=== PATIENT | female | born 1960 | race African-American/Black ===

== ENCOUNTER 2021-10-31 12:11 | Outpatient (CLI) | payer OTHER, BC, SELFPAY ==
--- NOTE | ~2021-10-31 | XR_ITS ---
EXAMINATION: XR shoulder RT min 2V INDICATION: Chronic right shoulder pain TECHNIQUE: Four views of the left shoulder are submitted. COMPARISON: None FINDINGS: Normal alignment. No fracture. There is unchanged severe osteoarthritis of the acromioclavi cular joint and mild osteoarthritis of the glenohumeral joint. Soft tissues are unremarkable. IMPRESSION: 1. Unchanged severe osteoarthritis of the acromioclavicular joint. Reviewed, dictated and finalized at location B.
== END 2021-10-31 12:12 ==
PROVIDERS: PCP Nurse Practitioner Family; Visit Provider Nurse Practitioner Family
DX: M19.011 Primary osteoarthritis, right shoulder (principal)
CPT/HCPCS: 73030

== ENCOUNTER → 2022-02-01 15:51 | Outpatient (CLI) | payer BC, SELFPAY ==
--- NOTE | ~2022-02-01 | MR_ITS ---
EXAMINATION: MR cervical spine wo con DATE: 02/01/2022 16:36 INDICATION: Right arm weakness TECHNIQUE: Magnetic resonance imaging (MRI) of the cervical spine was performed without intravenous c ontrast. Sequences included sagittal T2-weighted FSE, sagittal T2-weighted FS FSE, sagittal T1-weight ed FSE, axial MERGE and axial T2-weighted FSE. COMPARISON: Lumbar spine CT dated 06/05/2018 FINDINGS: Straightening of the normal cervical lordosis. Vertebral body heights are normal. Mild disc height l oss at C2-C3 and C4-C5 through T3-T4 with prominent anterior endplate osteophytes at C4-C5 through C6 -C7. Mildly heterogeneous marrow signal intensity without concerning T1 hypointense lesions. Cord sig nal intensity is normal. 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 Enlarged ri ght thyroid lobe and atrophic or absent left thyroid lobe partially obscured by a saturation band. Ce rvical soft tissues are otherwise unremarkable. The following disc levels are specifically discussed: C2-C3: The disc does not extend beyond the endplate margin. There is no uncovertebral joint osteoarth ritis. There is mild bilateral facet joint osteoarthritis. There is no neural foraminal stenosis. The re is no central canal stenosis. C3-C4: Mild disc bulge with annular fissure. There is mild left uncovertebral joint osteoarthritis. T here is mild bilateral facet joint osteoarthritis. There is no neural foraminal stenosis. There is no central canal stenosis. C4-C5: Disc is minimally bulging. There is mild bilateral uncovertebral joint osteoarthritis. There i s mild bilateral facet joint osteoarthritis. There is no neural foraminal stenosis. There is no centr al canal stenosis. C5-C6: Disc is minimally bulging. There is mild bilateral uncovertebral joint osteoarthritis. There i s mild bilateral facet joint osteoarthritis. There is no neural foraminal stenosis. There is no centr al canal stenosis. C6-C7: Annular fissure and small central disc protrusion. There is mild left uncovertebral joint oste oarthritis. There is mild bilateral facet joint osteoarthritis. There is no neural foraminal stenosis . There is mild central canal stenosis. C7-T1: Annular fissure with mild disc bulge. There is mild bilateral uncovertebral joint osteoarthrit is. There is mild bilateral bilateral facet joint osteoarthritis. There is no neural foraminal stenos is. There is mild central canal stenosis. IMPRESSION: 1. Straightening of the normal cervical lordosis and mild spondylosis Reviewed, dictated and finalized at location A. [employer]
== END ==
PROVIDERS: PCP Nurse Practitioner Family; Visit Provider Orthopaedic Surgery
DX: M47.812 Spondylosis without myelopathy or radiculopathy, cervical region (principal); R53.1 Weakness
CPT/HCPCS: 72141

== ENCOUNTER 2022-03-08 08:46 | Outpatient (CLI) | payer BC, SELFPAY ==
--- NOTE | ~2022-03-08 | MR_ITS ---
MRI of the brain Clinical History: TIA Technique: Axial and sagittal T1-weighted images were acquired. These were followed by axial T2-weigh alejandra, diffusion weighted, gradient, and FLAIR images. Findings: There is no acute infarct, intracranial hemorrhage, or mass lesion. There is an area of chr onic encephalomalacia in the left frontal lobe. There is diffuse hyperintense signal abnormality on F LAIR images throughout the ventricular white matter and in the levar. Ventricles and subarachnoid spaces are unremarkable. Orbits are unremarkable. Paranasal sinuses and m astoid air cells are clear. Major intracranial flow voids are preserved. Sagittal midline structures are intact. IMPRESSION: No acute abnormality seen. 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 Correlate for old infarct. Diffuse chronic white matter disease. Finding suggests severe chronic microvascular ischemic change. Correlate for other diffuse, chronic white matter disease. Reviewed, dictated and finalized at [facility]. [place] [employer] IMPRESSION: No acute abnormality seen. 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 Correlate for old infarct. Diffuse chronic white matter disease. Finding suggests severe chronic microvasc ular ischemic change. Correlate for other diffuse, chronic white matter disease .
== END 2022-03-08 08:47 ==
PROVIDERS: PCP Nurse Practitioner Family; Visit Provider Nurse Practitioner Family
DX: G45.9 Transient cerebral ischemic attack, unspecified (principal); G93.89 Other specified disorders of brain
CPT/HCPCS: 70551

== ENCOUNTER → 2022-10-09 08:59 | Outpatient (CLI) | payer BC, SELFPAY ==
--- NOTE | ~2022-10-09 | MR_ITS ---
EXAMINATION: MR shoulder RT wo con DATE: 10/09/2022 10:04 INDICATION: Right shoulder pain TECHNIQUE: Magnetic resonance imaging (MRI) of the right shoulder was performed without intravenous c ontrast. Sequences included axial PD-weighted FS FSE, coronal oblique PD-weighted FS FSE, coronal obl ique T2-weighted FS FSE, sagittal PD-weighted FS FSE, and sagittal T1-weighted SE. COMPARISON: Right shoulder radiographs dated 10/31/2021 FINDINGS: Coracoacromial arch: The acromion undersurface is curved in morphology (type II). The coracoacromial ligament is normal. M oderate acromioclavicular osteoarthritis. Rotator cuff: Moderate supraspinatus and mild infraspinatus tendinopathy. There is a small mild articular sided tea r at the superior facet footplate of the distal supraspinatus tendon measuring 2-3 mm AP and 6 mm med ial to lateral involving no greater than one third of the tendon thickness. The teres minor tendon is normal. Mild subscapularis tendinopathy without discrete tear. Mild fatty atrophy of the subscapular is muscle belly. Biceps tendon, glenoid labrum and glenohumeral cartilage: Mild tendinopathy without tear of the intra-articular portion of the long head biceps tendon. There i s a superior, anterior to posterior tear of the glenoid labrum (SLAP tear) beginning at the 12:30 pos ition of the superior glenoid labrum and extending posteriorly to the 10:30 position of the posterosu perior glenoid labrum. Mild right glenohumeral osteoarthritis with focal region of deep chondral ulce ration at the apex of the humeral head. Fluid: Small glenohumeral joint effusion with mild synovitis at the axillary recess. No loose osteochondral bodies. Small amount of fluid in the subacromial/subdeltoid bursa consistent with mild bursitis. Bones: Bone alignment is normal. No fracture or pathologic marrow replacing process. There is cystic change and surrounding focal marrow edema at the cephalad aspect of the intertubercular groove and anterior margin of the superior facet of the greater tuberosity. IMPRESSION: 1. Mild to moderate rotator cuff tendinopathy. Prominent at the supraspinatus tendon where there is a small mild articular sided tear. 2. SLAP tear of the superior to posterosuperior glenoid labrum. 3. Mild right glenohumeral and moderate acromioclavicular osteoarthritis. 4. Small right glenohumeral joint effusion and mild subacromial/subdeltoid bursitis. Reviewed, dictated and finalized at location B. IMPRESSION: 1. Mild to moderate rotator cuff tendinopathy. Prominent at the supraspinatus t endon where there is a small mild articular sided tear. 2. SLAP tear of the superior to posterosuperior glenoid labrum. 3. Mild right glenohumeral and moderate acromioclavicular osteoarthritis. 4. Small right glenohumeral joint effusion and mild subacromial/subdeltoid burs itis.
== END ==
PROVIDERS: PCP Nurse Practitioner Family; Visit Provider Orthopaedic Surgery
DX: S43.431A Superior glenoid labrum lesion of right shoulder, initial encounter (principal); M19.011 Primary osteoarthritis, right shoulder; M25.411 Effusion, right shoulder; X58.XXXA Exposure to other specified factors, initial encounter
CPT/HCPCS: 73221

== ENCOUNTER 2022-11-08 07:49 | Outpatient (CLI) | payer BC, SELFPAY ==
--- NOTE | 2022-11-08 11:00 | NEURO_ITS ---
Impression: # Complains of numbness of hands and right shoulder pain. 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 # Left ulnar neuropathy across the elbow. # No Carpal Tunnel Syndrome. # Normal Needle/EMG exam including proximal muscles of right upper extremity. # Clinical correlation recommended. Nerve Conduction Studies Anti Sensory Summary Table Stim Site NR Peak (ms) P-T Amp (?V) Site1 Site2 Delta-P (ms) Dist (cm) Dano (m/s) Left Median Anti Sensory (2-3nd Digit) Wrist 3.0 34.9 Wrist 2-3nd Digit 3.0 14.0 47 Wrist 3.1 54.8 Wrist 2-3nd Digit 3.0 14.0 47 Right Median Anti Sensory (2-3nd Digit) Wrist 2.7 43.5 Wrist 2-3nd Digit 2.7 14.0 52 Wrist 2.8 32.3 Wrist 2-3nd Digit 2.7 14.0 52 Left Radial Anti Sensory (Base 1st Digit) Wrist 1.8 24.6 Wrist Base 1st Digit 1.8 0.0 Right Radial Anti Sensory (Base 1st Digit) Wrist 2.0 28.6 Wrist Base 1st Digit 2.0 0.0 Left Ulnar Anti Sensory (5th Digit) Wrist 2.7 46.3 Wrist 5th Digit 2.7 14.0 52 Right Ulnar Anti Sensory (5th Digit) Wrist 2.7 37.4 Wrist 5th Digit 2.7 14.0 52 Motor Summary Table Stim Site NR Onset (ms) O-P Amp (mV) Site1 Site2 Delta-0 (ms) Dist (cm) Dano (m/s) Left Median Motor (Abd Poll Brev) Wrist 3.1 5.7 Elbow Wrist 4.8 28.0 58 Elbow 7.9 3.2 Right Median Motor (Abd Poll Brev) Wrist 2.6 4.9 Elbow Wrist 4.3 25.0 58 Elbow 6.9 4.5 Left Ulnar Motor (Abd Dig Minimi) Wrist 2.3 4.5 A Elbow Wrist 6.7 30.0 45 A Elbow 9.0 2.3 B Elbow Wrist 3.8 22.0 58 B Elbow 6.1 4.4 Right Ulnar Motor (Abd Dig Minimi) Wrist 2.7 3.6 A Elbow Wrist 4.7 25.0 53 A Elbow 7.4 1.4 B Elbow Wrist 3.2 19.0 59 B Elbow 5.9 2.7 F Wave Studies NR F-Lat (ms) L-R F-Lat (ms) Left Median (Mrkrs) (Abd Poll Brev) 25.39 0.69 Right Median (Mrkrs) (Abd Poll Brev) 24.70 0.69 Left Ulnar (Mrkrs) (Abd Dig Min) 26.22 1.29 Right Ulnar (Mrkrs) (Abd Dig Min) 24.92 1.29 EMG Side Muscle Nerve Root Ins Act Fibs Amp Dur Recrt Comment Right 1stDorInt Ulnar C8-T1 Nml Nml Nml Nml Nml Right Ext Indicis Radial (Post Int) C7-8 Nml Nml Nml Nml Nml Right Ext Digitorum Radial (Post Int) C7-8 Nml Nml Nml Nml Nml Right BrachioRad Radial C5-6 Nml Nml Nml Nml Nml Right PronatorTeres Median C6-7 Nml Nml Nml Nml Nml Right Abd Poll Brev Median C8-T1 Nml Nml Nml Nml Nml Left 1stDorInt Ulnar C8-T1 Nml Nml Nml Nml Nml Left Ext Indicis Radial (Post Int) C7-8 Nml Nml Nml Nml Nml Left Ext Digitorum Radial (Post Int) C7-8 Nml Nml Nml Nml Nml Left BrachioRad Radial C5-6 Nml Nml Nml Nml Nml Left PronatorTeres Median C6-7 Nml Nml Nml Nml Nml Left Abd Poll Brev Median C8-T1 Nml Nml Nml Nml Nml Right Biceps Musculocut C5-6 Nml Nml Nml Nml Nml Right Triceps Radial C6-7-8 Nml Nml Nml Nml Nml Right Deltoid Axillary C5-6 Nml Nml Nml Nml Nml Left Biceps Musculocut C5-6 Nml Nml Nml Nml Nml Left Triceps Radial C6-7-8 Nml Nml Nml Nml Nml Left Deltoid Axillary C5-6 Nml Nml Nml Nml Nml MTDD
== END 2022-11-08 07:50 | disposition home or self-care (01) ==
PROVIDERS: PCP Nurse Practitioner Family; Visit Provider Orthopaedic Surgery
DX: R20.2 Paresthesia of skin (principal); G56.22 Lesion of ulnar nerve, left upper limb
CPT/HCPCS: 95886; 95911

== ENCOUNTER 2024-07-18 08:53 | Outpatient (CLI) | payer OTHER, SELFPAY ==
--- NOTE | ~2024-07-18 | XR_ITS ---
AP view of the pelvis and AP and lateral views of the right hip Clinical history: Pain Findings: No acute fracture or dislocation is seen. Osseous alignment is anatomic. Bilateral hip and SI joint spaces are preserved. Soft tissues are unremarkable. Impression: No significant abnormality is seen. Reviewed, dictated and finalized at [facility]. Impression: No significant abnormality is seen.
--- NOTE | ~2024-07-18 | XR_ITS ---
Left Knee Technique: AP, lateral, and sunrise views were obtained. Clinical History: Pain Findings: No fracture or dislocation is seen. Osseous alignment is anatomic. Minimal degenerative spu rring present, especially the medial joint line and intercondylar notch. Soft tissues are unremarkabl e. No joint effusion is seen. Impression: Minimal degenerative spurring, as above. Reviewed, dictated and finalized at location M. Impression: Minimal degenerative spurring, as above.
== END 2024-07-18 08:54 | disposition home or self-care (01) ==
LOC: MICIMG 08:56
PROVIDERS: PCP Internal Medicine; Visit Provider Internal Medicine
DX: M25.551 Pain in right hip (principal); M25.562 Pain in left knee
CPT/HCPCS: 73502; 73562